=== PATIENT | male | born 1980 | race African-American/Black ===

== ENCOUNTER 2016-03-30 16:35 | Emergency (ER) | payer BC ==
[~2016-03-30] VITALS: Ht 185.4 cm; Wt 137.0 kg
[~2016-03-30 16:35] MED LIST: ADDERALL XR 3030 MG PO; ADIPEX-P37.5 M1 PO; ANTIVERT25 MG PO; HYDROCHLOROTHIA25 MG PO; LOSARTAN POTAS100 MG PO
[2016-03-30 18:11] LABS: HEMATOCRIT 47.3 % (38.0-50.0); MCHC 35.7 G/DL (30.0-36.0); MCV 86.6 FL (86-99); PLATELET COUNT 268 K/uL (156-360); RBC DIS.WIDTH-CV 13.9 % (11.8-14.6); RBC DIS.WIDTH-SD 43.3 % (39-53); RED BLOOD COUNT 5.46 M/uL (4.00-5.50); WHITE BLOOD COUNT 7.5 K/uL (4.1-10.2)
[2016-03-30 18:12] LABS: ADD MIUA? NO; BILIRUBIN NEGATIVE; BLOOD NEGATIVE; COLOR YELLOW ((YELLOW)); GLUCOSE (STRIP) NEGATIVE; KETONES NEGATIVE; LEUKOCYTES NEGATIVE; NITRITE NEGATIVE; PROTEIN (STRIP) NEGATIVE; SPECIFIC GRAVITY 1.028 (1.000-1.030); UCUL ADDED? NO; UROBILINOGEN 0.2 MG/DL (0.2-1.0)
[2016-03-30] MEDS ORDERED: FLUTICASONE P15.8 ML BOTH NARES (18:34)
[2016-03-30 18:58] LABS: CHLORIDE 103 mEq/L (99-109); SODIUM 140 mEq/L (136-147)
[2016-03-30 18:59] LABS: GLUCOSE 95 mg/dL (70-99)
[2016-03-30 19:01] LABS: ANION GAP 9 MEQ/L (2-14)
[2016-03-30 19:03] LABS: GFR ESTIMATE (CALCULATED) > 59 mL/min/
[2016-03-30 19:04] LABS: UREA NITROGEN (BUN) 19 mg/dL (9-23)
[2016-03-30 19:06] LABS: CREATINE KINASE 277 IU/L (1-294)
[2016-03-30 19:12] LABS: ERTH.SED.RATE 14 MM/HR (0-15)
[2016-03-30 19:31] LABS: C-REACTIVE PROTEIN 5.3 MG/L (0-10); SAMPLE HEMOLYSIS CHECK 0; SAMPLE ICTERIC CHECK 0; SAMPLE LIPEMIA CHECK 0
[2016-03-30] MEDS ORDERED: FLEXERIL10 MG PO (21:36)
[2016-03-30] MEDS ORDERED: NAPROSYN500 MG PO (21:36)
[2016-03-30 22:00] VITALS: BP 121/72
== END 2016-03-30 22:09 | disposition home or self-care (01) ==
LOC: EME 16:35
PROVIDERS: Physician Assistant
DX: M79.651 Pain in right thigh (principal); M79.652 Pain in left thigh; R53.1 Weakness; R20.2 Paresthesia of skin; I10 Essential (primary) hypertension; Z83.3 Family history of diabetes mellitus
CPT/HCPCS: 75635; 80048; 81003; 82550; 85027; 85651; 86140; 99281; 99284

== ENCOUNTER 2017-03-17 15:05 | Emergency (ER) | payer OTHER ==
[~2017-03-17] VITALS: Ht 182.9 cm; Wt 134.8 kg
[~2017-03-17 15:05] MED LIST changes: +FLEXERIL10 MG PO; +FLUTICASONE P15.8 ML BOTH NARES; +NAPROSYN500 MG PO
[2017-03-17] MEDS ORDERED: NAPROXEN500 MG PO (18:14)
[2017-03-17] MEDS ORDERED: FLEXERIL10 MG PO (18:14)
[2017-03-17 18:29] VITALS: BP 131/89
== END 2017-03-17 18:28 | disposition home or self-care (01) ==
LOC: EME 15:05
DX: M54.16 Radiculopathy, lumbar region (principal); M79.89 Other specified soft tissue disorders; I10 Essential (primary) hypertension
CPT/HCPCS: 93971; 99281; 99284; J1100; J1885